=== PATIENT | female | born 1960 | race Hispanic/Latino ===

== ENCOUNTER 2017-05-27 16:58 | Emergency (ER) | payer OTHER ==
[2017-05-27 17:00] VITALS: BMI 33.9
[2017-05-27 17:33] VITALS: BP 159/81; PULSE 98; RESP 20; TEMP 98.5; O2SAT 97
[2017-05-27] MEDS ORDERED: TDAP Vaccine 0.5 mL Syr IM ONE (18:04)
--- NOTE | 2017-05-27 18:11 | ED PDOC ---
Arrival/HPI - General Chief Complaint: Trauma Time Seen by Provider: 05/27/17 17:41 Historian: Patient - History of Present Illness Narrative History of Present Illness (Text): 05/27/17 18:11 A 57 year old female presents to the emergency department complaining of bilateral knee, right wrist and right shoulder pain s/p mechanical fall prior to arrival. Patient states she was walking in the bank and believes the ground was uneven, tripped and fell forward landing on all fours. Patient is complaining of bilateral knee pain with abrasions, pain to right shoulder and right wrist. Patient denies any loss of consciousness, hitting head, headaches, weakness, shortness of breath or any other complaints at this time. No medications were taken for pain. Time/Duration: Prior to Arrival Symptom Onset: Sudden Symptom Course: Unchanged Activities at Onset: Rest Modifying Factors (Text): none Past Medical History - Provider Review Nursing Documentation Reviewed: Yes - Travel History Have you recently traveled outside [place] w/in the past 3 mons?: No - Infectious Disease Hx of Infectious Diseases: None - Tetanus Immunization Tetanus Immunization: Unknown - Cardiac Hx Hypertension: Yes Hx Pacemaker: No - Pulmonary Hx Asthma: Yes - Neurological Hx Paralysis: No - Renal Hx Renal Disorder: No - Endocrine/Metabolic Hx Diabetes Mellitus Type 2: Yes - Hematological/Oncological Hx Blood Transfusions: No Hx Blood Transfusion Reaction: No - Integumentary Hx Dermatological Disorder: No - Musculoskeletal/Rheumatological Hx Musculoskeletal Disorders: Yes (RT KNEE ARTHEITIS- OSTEOPENIA) - Psychiatric Hx Emotional Abuse: No Hx Physical Abuse: No Hx Substance Use: No - Surgical History Hx Thyroidectomy: Yes Other/Comment: right great toe, right knee x3, d/c, rupture ovarian cyst, lump removal left breast, nose surgery - Anesthesia Hx Anesthesia Reactions: Yes (1991-HR DROPPED-REINTUBATED; WOKE UP DURING ENDO PROCEDURE) Hx Malignant Hyperthermia: No - Suicidal Assessment Feels Threatened In Home Enviroment: No Family/Social History - Physician Review Nursing Documentation Reviewed: Yes Family/Social History: No Known Family HX Smoking Status: Former Smoker Hx Alcohol Use: Yes (SOCIAL) Hx Substance Use: No Hx Substance Use Treatment: No Allergies/Home Meds Allergies/Adverse Reactions: Allergies meloxicam Allergy (Intermediate, Verified 05/27/17 17:53) SHORTNESS OF BREATH cyclobenzaprine [From Flexeril] Allergy (Verified 05/27/17 17:53) RASH GAMMA GLOBULIN Allergy (Intermediate, Uncoded 05/27/17 18:03) RASH HIVES MIDOL PM Allergy (Intermediate, Uncoded 05/27/17 18:03) NUMBNESS OF TONGUE Home Medications: Home Meds Medication Instructions Recorded Confirmed Amlodipine Besylate [Norvasc] 10 mg PO QAM 06/20/13 05/27/17 Atorvastatin Calcium [Lipitor] 10 mg PO DAILY 06/20/13 05/27/17 Metformin Hydrochloride [Metformin] 1,000 mg PO BID 06/20/13 05/27/17 Nabumetone [Relafen] 500 mg PO PRN PRN 06/20/13 05/27/17 valACYclovir [Valtrex] 500 mg PO QAM 06/20/13 05/27/17 Albuterol Sulfate [Albuterol Hfa] 0.09 mg IH PRN PRN 08/13/15 05/27/17 Calcium [Oyster Calcium] 1,500 mg PO DAILY 08/13/15 05/27/17 Empagliflozin [Jardiance] 10 mg PO QAM 08/13/15 05/27/17 Epinephrine [Epipen] 0.3 mg MR PRN PRN 08/13/15 05/27/17 Omeprazole [Prilosec] 20 mg PO DAILY 08/13/15 05/27/17 Dulaglutide [Trulicity] 0.75 mg INJ QD7 05/27/17 05/27/17 Fluticasone Propionate [Flovent 10 mg INH PRN PRN 05/27/17 05/27/17 Hfa] Review of Systems - Physician Review All systems were reviewed & negative as marked: Yes - Review of Systems Constitutional: absent: Fatigue, Fevers Respiratory: absent: SOB, Cough Cardiovascular: absent: Chest Pain Gastrointestinal: absent: Abdominal Pain, Vomiting, Anorexia Genitourinary Female: absent: Dysuria, Frequency Musculoskeletal: Arthralgias, Back Pain, Other (bilateral knee, right shoulder, right wrist pain). absent: Neck Pain Neurological: absent: Headache Psychiatric: absent: Anxiety, Depression Physical Exam Vital Signs Reviewed: Yes Vital Signs Temp Pulse Resp BP Pulse Ox 05/27/17 17:24 98.5 F 98 H 20 159/81 H 97 Temperature: Afebrile Blood Pressure: Hypertensive Pulse: Regular Respiratory Rate: Normal Appearance: Positive for: Well-Appearing, Non-Toxic, Comfortable Pain Distress: None Mental Status: Positive for: Alert and Oriented X 3 - Systems Exam Head: Present: Atraumatic Extroacular Muscles: Present: EOMI Mouth: Present: Moist Mucous Membranes Neck: Present: Normal Range of Motion. No: MIDLINE TENDERNESS, Paraspinal Tenderness Respiratory/Chest: Present: Clear to Auscultation, Good Air Exchange. No: Respiratory Distress, Accessory Muscle Use Cardiovascular: Present: Regular Rate and Rhythm, Normal S1, S2. No: Murmurs Abdomen: No: Tenderness Back: Present: Normal Inspection. No: Midline Tenderness, Paraspinal Tenderness Upper Extremity: Present: Normal Inspection, Normal ROM, NORMAL PULSES, Tenderness (right wrist; minimal tenderness over dorsal aspect of wrist; full rom of wrist; sensation and distal pulses intact; cap refill <2. right shoulder ; minimal anterior shoulder tenderness; full rom. no edema, no erythema; no ecchymosis. ), Neurovascularly Intact, Capillary Refill < 2s, Other (full rom of both extremities. ). No: Swelling, Erythema Lower Extremity: Present: NORMAL PULSES, Normal ROM, Tenderness (bilateral knees ; abrasions noted to anterior aspect of both knees, full rom of knees. sensation and distal pulses intact. + abrasions to both knees bilaterally.), Neurovascularly Intact, Capillary Refill < 2 s. No: Edema, Swelling, Erythema, Deformity Neurological: Present: GCS=15, Speech Normal, Motor Func Grossly Intact, Normal Sensory Function, Gait Normal Skin: Present: Warm, Dry Psychiatric: Present: Alert, Oriented x 3 Medical Decision Making ED Course and Treatment: 05/27/17 18:09 Impression: A 57 year old female with bilateral knee, right wrist and right shoulder pain s/ p mechanical fall. Differential Diagnosis included but are not limited to: r/o fracture Plan: -- xray bilateral knees: no fracture -- xray right shoulder: no fracture -- xray right wrist: no fracture -- tetanus updated; tramadol given for pain; as patient refused "strong pain mediations" pt with allergy to certain nsaid; will avoid toradol. -- Reassess and disposition Progress Notes: pt non toxic well appearing; no distress. resting comfortably in er. moving all extremities. wounds cleaned. bacitracin and dressing applied. 05/27/17 19:47 after taking tramadol; pt developed nausea. zofran given for nausea right velcro volar wrist splint applied. pt has cane at home for ambulation. advised f/u with pmd and orthopedist. advised immediate return if symptoms worsen, persist or if new symptoms develop. impression: wrist pain, shoulder pain, knee pain, abrasion, knee take your mediations for pain rest,ice, elevation, keep wounds clean and dry apply bacitracin twice daily follow up with the orthopedist within the next 2 days use cane for ambulation follow up with the primary care physician within the next 2 days return immediately if symptoms worsen, persist or if new symptoms develop. - RAD Interpretation Radiology Orders: 05/27/17 17:57 WRIST, RIGHT 3 VIEWS [RAD] Stat 05/27/17 18:02 KNEES BILATERAL [RAD] Stat SHOULDER RIGHT [RAD] Stat - Medication Orders Current Medication Orders: Discontinued Medications Ondansetron HCl (Zofran Odt) 4 mg PO STAT STA Stop: 05/27/17 19:07 Tetanus/Reduced Diphtheria/Acell Pertussis (Boostrix Vaccine Inj) 0.5 ml IM .ONCE ONE Stop: 05/27/17 18:05 Last Admin: 05/27/17 18:15 Dose: 0.5 ml Tramadol HCl (Ultram) 50 mg PO STAT STA Stop: 05/27/17 18:05 Last Admin: 05/27/17 18:26 Dose: 50 mg - Scribe Statement The provider has reviewed the documentation as recorded by the Susan Chen Provider Scribe Attestation: All medical record entries made by the Susan were at my direction and personally dictated by me. I have reviewed the chart and agree that the record accurately reflects my personal performance of the history, physical exam, medical decision making, and the department course for this patient. I have also personally directed, reviewed, and agree with the discharge instructions and disposition. Disposition/Present on Arrival - Present on Arrival Any Indicators Present on Arrival: No History of DVT/PE: No History of Uncontrolled Diabetes: No Urinary Catheter: No History of Decub. Ulcer: No History Surgical Site Infection Following: Bariatric Surgery, None - Disposition Have Diagnosis and Disposition been Completed?: Yes Diagnosis: Wrist pain, Shoulder pain, Knee pain, Abrasion, knee Disposition: HOME/ ROUTINE Disposition Time: 19:51 Patient Plan: Discharge Condition: GOOD Discharge Instructions (ExitCare): Abrasion (ED), Knee Pain (ED), Wrist Injury (ED) Additional Instructions: take your mediations for pain rest,ice, elevation, keep wounds clean and dry apply bacitracin twice daily follow up with the orthopedist within the next 2 days use cane for ambulation follow up with the primary care physician within the next 2 days return immediately if symptoms worsen, persist or if new symptoms develop. Referrals: Juan Manuel Medeiros MD [Primary Care Provider] - Follow up with primary Philip Corrigan MD [Staff Provider] - Follow up with primary Forms: [facility] (Kyrgyz), WORK NOTE
--- NOTE | 2017-05-28 09:40 | RAD ---
PROCEDURE: Right shoulder 05/27/2017 HISTORY: right shoulder pain COMPARISON: No prior. FINDINGS: BONES: Normal. No fracture. JOINTS: . Minor degenerative changes right acromioclavicular joint. Questionable subchondral cystic changes humeral head SOFT TISSUES: Normal. OTHER FINDINGS: None. IMPRESSION: Mild DJD right acromioclavicular joint. Questionable subchondral cystic changes right humeral head listen
--- NOTE | 2017-05-28 16:19 | RAD ---
PROCEDURE: Bilateral knees dated 05/27/2017 HISTORY: Status post fall with bilateral knee pain. COMPARISON: No prior study available comparison. FINDINGS: Right knee findings: Current study reveals no evidence of acute displaced fracture nor dislocation. Osseous structures intact. Degenerative osteoarthritis most notably affecting the medial compartment with joint space narrowing and marginal medial osteophyte formation. Tiny posterior patellar osteophytes with small anterior superior patella enthesophyte. Small suprapatellar joint effusion. Left knee findings: No evidence of acute displaced fracture nor dislocation. Minor medial joint space narrowing with very tiny posterior inferior patellar osteophyte formation. Trace suprapatellar joint effusion. Impression: No acute fractures. DJD both knees right greater than left. Small right and trace left-sided joint fusions.
--- NOTE | 2017-05-28 16:21 | RAD ---
PROCEDURE: Right Wrist Radiographs. HISTORY: wrist injury COMPARISON: None. FINDINGS: BONES: No evidence acute displaced fracture nor dislocation. The osseous structures appear intact. No cortical destructive changes. JOINTS: Mild triscaphe DJD. SOFT TISSUES: Normal. OTHER FINDINGS: None. IMPRESSION: Mild triscaphe DJD. . If symptoms persist or occult fracture suspected clinically, consider repeat radiographs 5-10 days as most fractures should become radiographically evident in this timeframe
== END 2017-05-27 19:55 | disposition home or self-care (01) ==
LOC: ED 16:58
DX: S80.212A Abrasion, left knee, initial encounter (principal); S80.211A Abrasion, right knee, initial encounter; W01.0XXA Fall on same level from slipping, tripping and stumbling without subsequent striking against object, initial encounter; Y93.01 Activity, walking, marching and hiking; Y92.510 Bank as the place of occurrence of the external cause; M25.511 Pain in right shoulder; M25.531 Pain in right wrist; M25.561 Pain in right knee; M25.562 Pain in left knee; Z23 Encounter for immunization

== ENCOUNTER 2017-07-09 07:08 | Emergency (ER) | payer OTHER ==
[2017-07-09 07:08] VITALS: BMI 33.9
[2017-07-09 07:22] VITALS: BP 175/85; RESP 16; TEMP 98.2
--- NOTE | 2017-07-09 07:38 | ED PDOC ---
Arrival/HPI - General Chief Complaint: Trauma Time Seen by Provider: 07/09/17 07:10 Historian: Patient - History of Present Illness Narrative History of Present Illness (Text): 07/09/17 07:27 A 57 year old female, whose past medical history includes diabetes, hypertension and idiopathic anaphylaxis, presents to the emergency department for evaluation after mechanical fall prior to arrival. Patient reports while walking to her car she tripped on a hole causing her to fall and land on her right side. She currently complains of pain to her right wrist, knee and ankle. Patient denies any other injuries, loss of consciousness, head trauma, headache , dizziness, neck pain, nausea, vomiting, abdominal pain, back pain, chest pain , shortness of breath or any other complaints. Patients tetanus shot is up to date. Patient clarified she is not allergic to Motrin PMD: Dr. Medeiros Time/Duration: Prior to Arrival Context: Tripped Past Medical History - Provider Review Nursing Documentation Reviewed: Yes - Infectious Disease Hx of Infectious Diseases: None - Tetanus Immunization Tetanus Immunization: Unknown - Cardiac Hx Cardiac Disorders: Yes Hx Hypertension: Yes Hx Pacemaker: No - Pulmonary Hx Respiratory Disorders: Yes Hx Asthma: Yes - Neurological Hx Neurological Disorder: No Hx Paralysis: No - HEENT Hx HEENT Disorder: No - Renal Hx Renal Disorder: No - Endocrine/Metabolic Hx Endocrine Disorders: Yes Hx Diabetes Mellitus Type 2: Yes - Hematological/Oncological Hx Blood Disorders: No Hx Blood Transfusions: No Hx Blood Transfusion Reaction: No - Integumentary Hx Dermatological Disorder: No - Musculoskeletal/Rheumatological Hx Musculoskeletal Disorders: Yes (RT KNEE ARTHEITIS- OSTEOPENIA) - Gastrointestinal Hx Gastrointestinal Disorders: No - Genitourinary/Gynecological Hx Genitourinary Disorders: No - Psychiatric Hx Psychophysiologic Disorder: No Hx Emotional Abuse: No Hx Physical Abuse: No Hx Substance Use: No - Surgical History Hx Thyroidectomy: Yes Other/Comment: right great toe, right knee x3, d/c, rupture ovarian cyst, lump removal left breast, nose surgery - Anesthesia Hx Anesthesia Reactions: Yes (1992-HR DROPPED-REINTUBATED; WOKE UP DURING ENDO PROCEDURE) Hx Malignant Hyperthermia: No - Suicidal Assessment Feels Threatened In Home Enviroment: No Family/Social History - Physician Review Nursing Documentation Reviewed: Yes Family/Social History: No Known Family HX Smoking Status: Former Smoker Hx Alcohol Use: No Hx Substance Use: No Hx Substance Use Treatment: No Allergies/Home Meds Allergies/Adverse Reactions: Allergies meloxicam Allergy (Intermediate, Verified 07/09/17 07:14) SHORTNESS OF BREATH cyclobenzaprine [From Flexeril] Allergy (Verified 07/09/17 07:14) RASH GAMMA GLOBULIN Allergy (Intermediate, Uncoded 07/09/17 07:14) RASH HIVES MIDOL PM Allergy (Intermediate, Uncoded 07/09/17 07:14) NUMBNESS OF TONGUE Home Medications: Home Meds Medication Instructions Recorded Confirmed Atorvastatin Calcium [Lipitor] 10 mg PO DAILY 06/20/13 07/09/17 Nabumetone [Relafen] 750 mg PO BID PRN 06/20/13 07/09/17 valACYclovir [Valtrex] 500 mg PO QAM 06/20/13 07/09/17 Albuterol Sulfate [Albuterol Hfa] 0.09 mg IH PRN PRN 08/13/15 07/09/17 Empagliflozin [Jardiance] 10 mg PO QAM 08/13/15 07/09/17 Omeprazole [Prilosec] 20 mg PO DAILY 08/13/15 07/09/17 Dulaglutide [Trulicity] 0.75 mg SC .WEEKLY 05/27/17 07/09/17 Fluticasone Propionate [Flovent 110 mcg INH PRN PRN 05/27/17 07/09/17 Hfa] Calcium Carbonate [Calcium] 2,000 mg PO DAILY 07/09/17 07/09/17 EPINEPHrine BIT [EPINEPHrine] 0.3 mg INJ PRN PRN 07/09/17 07/09/17 MetFORMIN [glucoPHAGE] 1,000 mg PO BID 07/09/17 07/09/17 amLODIPine [Norvasc] 10 mg PO DAILY 07/09/17 07/09/17 Review of Systems - Physician Review All systems were reviewed & negative as marked: Yes - Review of Systems Respiratory: absent: SOB Cardiovascular: absent: Chest Pain Gastrointestinal: absent: Abdominal Pain, Nausea, Vomiting Musculoskeletal: Other (Right wrist, knee and ankle pain). absent: Back Pain, Neck Pain Neurological: absent: Headache, Dizziness Physical Exam Vital Signs Reviewed: Yes Vital Signs Temp Pulse Resp BP Pulse Ox 07/09/17 08:49 95 H 16 99 07/09/17 07:16 98.2 F 109 H 16 175/85 H 98 Temperature: Afebrile Blood Pressure: Hypertensive Pulse: Tachycardic Respiratory Rate: Normal Appearance: Positive for: Well-Appearing, Non-Toxic, Comfortable Pain Distress: None Mental Status: Positive for: Alert and Oriented X 3 - Systems Exam Head: Present: Atraumatic, Normocephalic Pupils: Present: PERRL Extroacular Muscles: Present: EOMI Conjunctiva: Present: Normal Mouth: Present: Moist Mucous Membranes Neck: Present: Normal Range of Motion. No: MIDLINE TENDERNESS, Paraspinal Tenderness Respiratory/Chest: Present: Clear to Auscultation, Good Air Exchange. No: Respiratory Distress, Accessory Muscle Use Cardiovascular: Present: Regular Rate and Rhythm, Normal S1, S2. No: Murmurs Abdomen: Present: Normal Bowel Sounds. No: Tenderness, Distention, Peritoneal Signs Back: Present: Normal Inspection. No: Midline Tenderness, Paraspinal Tenderness Upper Extremity: Present: Normal ROM, NORMAL PULSES, Tenderness (in right wrist) , Neurovascularly Intact, Other (5/5 strength). No: Cyanosis, Edema, Swelling, Erythema, Temperature Abnormalties, Deformity Lower Extremity: Present: NORMAL PULSES, Normal ROM, Tenderness (in right knee) , Neurovascularly Intact, Other (Superficial abrasion to right knee, 5/5 strength). No: Edema, CALF TENDERNESS, Swelling, Deformity, Temperature Abnormalties Neurological: Present: GCS=15, CN II-XII Intact, Speech Normal Skin: Present: Warm, Dry, Normal Color. No: Rashes Psychiatric: Present: Alert, Oriented x 3, Normal Insight, Normal Concentration Medical Decision Making ED Course and Treatment: 07/09/17 07:27 Impression: A 57 year old female with right wrist and knee pain after mechanical fall. On exam, superficial abrasion to right knee, mild tenderness to right wrist and knee, normal ROM and strength. Differential Diagnosis included but are not limited to: Sprain vs. Fracture Plan: -- Right wrist xray -- Right knee xray -- Motrin -- Reassess and disposition Progress Notes: 07/09/17 08:05 Right wrist and knee xrays read and interpreted by me, which show no acute fractures. 07/09/17 08:24 Will apply Bacitracin and MEAGAN wrap to right knee and aircast to right wrist. I have discussed the results and plan with the patient, who expresses understanding. Patient in agreement with plan to be discharged home. Patient is stable for discharge. Patient was instructed to follow up employee health and return if symptoms worsen or new concerning symptoms arise. - RAD Interpretation Radiology Orders: 07/09/17 07:26 KNEE W PATELLA RIGHT 3 VIEW [RAD] Stat WRIST, RIGHT 3 VIEWS [RAD] Stat - Medication Orders Current Medication Orders: Discontinued Medications Ibuprofen (Motrin Tab) 600 mg PO STAT STA Stop: 07/09/17 07:27 Last Admin: 07/09/17 07:34 Dose: 600 mg - Scribe Statement The provider has reviewed the documentation as recorded by the Scribe Renetta Parish Provider Scribe Attestation: All medical record entries made by the Scribe were at my direction and personally dictated by me. I have reviewed the chart and agree that the record accurately reflects my personal performance of the history, physical exam, medical decision making, and the department course for this patient. I have also personally directed, reviewed, and agree with the discharge instructions and disposition. Disposition/Present on Arrival - Present on Arrival Any Indicators Present on Arrival: No History of DVT/PE: No History of Uncontrolled Diabetes: No Urinary Catheter: No History of Decub. Ulcer: No History Surgical Site Infection Following: None - Disposition Have Diagnosis and Disposition been Completed?: Yes Diagnosis: Wrist sprain, Knee contusion Disposition: HOME/ ROUTINE Disposition Time: 08:24 Patient Problems: Current Active Problems Problem Status Onset Wrist sprain Acute Knee contusion Acute Condition: IMPROVED Discharge Instructions (ExitCare): Wrist Injury (ED), Knee Pain (ED) Additional Instructions: Ms Espinoza, thank you for letting us take care of you today. Your provider was Dr. Dyson. You were treated for Knee Contusion, Wrist Injury. The emergency medical care you received today was directed at your acute symptoms. If you were prescribed any medication, please fill it and take as directed. It may take several days for your symptoms to resolve. Return to the Emergency Department if your symptoms worsen, do not improve, or if you have any other problems. Please contact your doctor or call one of the physicians/clinics you have been referred to that are listed on the Patient Visit Information form that is included in your discharge packet. Bring any paperwork you were given at discharge with you along with any medications you are taking to your follow up visit. Our treatment cannot replace ongoing medical care by a primary care provider (PCP) outside of the emergency department. Thank you for allowing the [facility] team to be part of your care today. If you had an X-Ray or CT scan: A Radiologist will review the ED reading if any change in treatment is needed we will contact you. If you had a blood, urine, or wound culture: It will take several days for the results, if any change in treatment is needed we will contact you. If you had an STI test: It will take 48 hours for the results. Please call after 1 week if you have not heard back. [facility] [employer] [facility] [employer] Employee Regarding your Work Related Injury, you are instructed to do all of the following by next day: 1. Notify [facility] [employer] Employee Health Department of the sustained injury and arrange for any follow-up appointments if needed during the next business day. If the office is closed or no answer is received, please leave a detailed voice message. 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 Employee Health can be reached at [phone]. 2. If there is time lost, notify [facility] Human Resources Department of the work related injury the next business day at [phone]. Prescriptions: Bacitracin OINT 1 applic TP [facility] #1 tube Referrals: Juan Manuel Medeiros MD [Primary Care Provider] - Follow up with primary Forms: [employer] (Italian), WORK NOTE
[2017-07-09 08:50] VITALS: PULSE 95; O2SAT 99
--- NOTE | 2017-07-09 09:44 | RAD ---
PROCEDURE: Right Wrist Radiographs. HISTORY: fall r/o fx COMPARISON: None. FINDINGS: BONES: Normal. No fracture. JOINTS: Normal. No dislocation. SOFT TISSUES: Normal. OTHER FINDINGS: None. IMPRESSION: No acute findings related to/accounting for the clinical presentation. Concordant results with the preliminary interpretation rendered by the emergency department physician procedure.
--- NOTE | 2017-07-09 09:50 | RAD ---
PROCEDURE: Right Knee Radiographs. HISTORY: fall r/o fx COMPARISON: None. FINDINGS: BONES: Proliferative hypertrophic changes emanating from the femoral condyle and tibial plateau JOINTS: Medial compartment degenerative change, mild. Less pronounced changes the patellofemoral joint. JOINT EFFUSION: None. OTHER FINDINGS: None. IMPRESSION: No acute findings related to/accounting for the clinical presentation. Concordant results with the preliminary interpretation rendered by the emergency department physician procedure.
== END 2017-07-09 08:52 | disposition home or self-care (01) ==
LOC: ED 07:08
DX: S63.501A Unspecified sprain of right wrist, initial encounter (principal); S80.01XA Contusion of right knee, initial encounter; W01.0XXA Fall on same level from slipping, tripping and stumbling without subsequent striking against object, initial encounter; Y93.01 Activity, walking, marching and hiking; Y92.89 Other specified places as the place of occurrence of the external cause